=== PATIENT | female | born 2000 | race Caucasian/White ===

== ENCOUNTER 2023-10-07 16:59 | Inpatient (IN) | payer OTHER ==
[2023-10-07 18:37] VITALS: BMI 20.2
[2023-10-07] MEDS ORDERED: BENZONATATE 200 MG CAPSULE PO PRN (19:56)
[2023-10-07] MEDS ORDERED: LOPERAMIDE HCL 2 MG CAPSULE PO PRN (19:56)
[2023-10-07] MEDS ORDERED: guaiFENesin 600 MG TABLET.ER (FP) PO PRN (19:56)
[2023-10-07] MEDS ORDERED: POLYETHYLENE GLYCOL (HEALTHYLAX) 3350 17 GM PACKET PO PRN (19:56)
[2023-10-07] MEDS ORDERED: MAG HYDROX/AL HYDROX/SIMETH 30 ML UNIT-DOSE CUP PO PRN (19:56)
[2023-10-07] MEDS ORDERED: IBUPROFEN 400 MG TABLET (FP) PO PRN (19:56)
[2023-10-07] MEDS ORDERED: NALOXONE HCL (KLOXXADO) 8 MG SPRAY NS PRN (19:56)
[2023-10-07] MEDS ORDERED: MAGNESIUM HYDROX 2400MG/30ML ORAL SUSPENSION 30 ML CUP PO PRN (19:56)
[2023-10-07] MEDS ORDERED: BENZOCAINE/MENTHOL (CHLORASEPTIC ) LOZENGE MM PRN (19:56)
[2023-10-07] MEDS ORDERED: NALOXONE HCL 0.4 MG/ML VIAL IM PRN (19:56)
[2023-10-07] MEDS ORDERED: DICYCLOMINE HCL 10 MG CAPSULE PO PRN (19:56)
[2023-10-07] MEDS ORDERED: ACETAMINOPHEN 325 MG TABLET (FP) PO PRN (19:56)
[2023-10-07] MEDS ORDERED: BISMUTH SUBSALICYLATE 524 MG/30 ML PO PRN (19:56)
[2023-10-07] MEDS: THIAMINE 100 MG TABLET PO SCH (23:27)
[2023-10-08] MEDS: IBUPROFEN 600 MG TABLET (FP) PO PRN (01:47)
[2023-10-08] MEDS: hydrOXYzine PAMOATE 25 MG CAPSULE (FP) PO ONE (02:11)
[2023-10-08] MEDS: METHOCARBAMOL 500 MG TABLET PO PRN (03:07)
[2023-10-08] MEDS: PRENATAL VITAMINS W/ FOLIC ACID TABLET (FP) PO SCH (09:23)
[2023-10-08] MEDS: NICOTINE 14 MG/24 HOURS TOPICAL PATCH TD SCH (09:23)
[2023-10-08] MEDS: methaDONE HCL 10 MG TABLET (FOR DETOX USE ONLY) PO ONE ×2 (09:26→09:33)
[2023-10-08] MEDS: BUPRENORPHINE/NALOXONE 0.5 MG/0.125 MG FILM SL ONE ×2 (09:28→22:40)
[2023-10-08] MEDS: diazePAM 5 MG TABLET PO SCH (10:56)
[2023-10-08] MEDS ORDERED: MELATONIN 5 MG TABLETS PO PRN (12:01)
[2023-10-08 12:07] LABS: HEMATOCRIT 35.1 % (32.4-45.2); HEMOGLOBIN 11.3 GM/dL (10.7-15.3); MCH 26.6 pg (25.7-33.7); MCHC 32.3 g/dl (32.0-36.0); MEAN CELL VOLUME 82.3 fl (80-96); MEAN PLT VOLUME 10.3 fl (7.5-11.1); PLATELET COUNT 170 10^3/uL (134-434); RBC 4.26 M/mm3 (3.60-5.2); RDW 13.3 % (11.6-15.6); WHITE BLOOD COUNT 6.7 K/mm3 (4.0-10.0)
[2023-10-08 12:13] LABS: CHLORIDE 107 mmol/L (98-107); POTASSIUM 4.2 mmol/L (3.5-5.1); SODIUM 139 mmol/L (136-145)
[2023-10-08 12:20] LABS: SGOT/AST 16 U/L (15-37); SGPT/ALT 20 U/L (13-61)
[2023-10-08 12:21] LABS: ANION GAP 2 mmol/L (4-13); CALCIUM 8.5 mg/dL (8.5-10.1); CO2 30 mmol/L (21-32); GLUCOSE,RANDOM 94 mg/dL (74-106)
[2023-10-08 12:22] LABS: ALBUMIN 3.2 g/dl (3.4-5.0); BILIRUBIN,TOTAL 0.2 mg/dL (0.2-1); TOT PROT 6.2 g/dl (6.4-8.2)
[2023-10-08 12:24] LABS: ALK PHOS 80 U/L (45-117)
[2023-10-08 12:26] LABS: CREATININE 0.7 mg/dL (0.55-1.3)
[2023-10-08] MEDS: NICOTINE POLACRILEX 2 MG LOZENGE BC PRN (17:26)
[2023-10-08 18:24] VITALS: RESP 18
[2023-10-08] MEDS: diazePAM 5 MG TABLET PO PRN (21:03)
[2023-10-08] MEDS: MELATONIN 5 MG TABLETS PO SCH (22:40)
[2023-10-09 05:40] VITALS: BP 147/93; PULSE 89; TEMP 97.6
[2023-10-09] MEDS: ONDANSETRON *ODT* 4 MG TABLET SL PRN (06:05)
[2023-10-09] MEDS: TRIMETHOBENZAMIDE HCL 200MG/2ML INJ IM ONE (07:09)
[2023-10-09] MEDS ORDERED: BUPRENORPHINE/NALOXONE 0.5 MG/0.125 MG FILM SL SCH (10:00)
[2023-10-10] MEDS ORDERED: diazePAM 5 MG TABLET PO SCH (06:00)
[2023-10-10] MEDS ORDERED: BUPRENORPHINE/NALOXONE 2 MG/0.5 MG FILM PACKET SL SCH (10:00)
[2023-10-10] MEDS ORDERED: methaDONE HCL 10 MG TABLET (FOR DETOX USE ONLY) PO ONE (10:00)
[2023-10-11] MEDS ORDERED: diazePAM 5 MG TABLET PO SCH (06:00)
[2023-10-11] MEDS ORDERED: BUPRENORPHINE/NALOXONE 4 MG/1 MG FILM PACKET SL SCH (10:00)
[2023-10-12] MEDS ORDERED: diazePAM 5 MG TABLET PO ONE (06:00)
[2023-10-12] MEDS ORDERED: BUPRENORPHINE/NALOXONE 8 MG/2 MG FILM PACKET SL SCH (10:00)
[2023-10-12] MEDS ORDERED: methaDONE HCL 10 MG TABLET (FOR DETOX USE ONLY) PO ONE (10:00)
[2023-10-13] MEDS ORDERED: BUPRENORPHINE/NALOXONE 8 MG/2 MG FILM PACKET SL SCH (10:00)
== END 2023-10-09 08:03 | disposition left against medical advice (07) | DRG 770 ==
LOC: YASAS 16:59 → Y6N 22:00
PROVIDERS: ADMIT Allergy & Immunology; ATTEND Surgery
PROC: HZ2ZZZZ Detoxification Services for Substance Abuse Treatment (ICD-10-PCS; principal; 2023-10-07)
DX: F11.23 Opioid dependence with withdrawal (principal); F10.230 Alcohol dependence with withdrawal, uncomplicated; F13.230 Sedative, hypnotic or anxiolytic dependence with withdrawal, uncomplicated; F14.20 Cocaine dependence, uncomplicated; F12.20 Cannabis dependence, uncomplicated; F17.210 Nicotine dependence, cigarettes, uncomplicated; F19.282 Other psychoactive substance dependence with psychoactive substance-induced sleep disorder; F19.280 Other psychoactive substance dependence with psychoactive substance-induced anxiety disorder; F31.9 Bipolar disorder, unspecified; F60.3 Borderline personality disorder; R40.0 Somnolence; Z62.810 Personal history of physical and sexual abuse in childhood; Z91.410 Personal history of adult physical and sexual abuse; Z63.0 Problems in relationship with spouse or partner; Z63.8 Other specified problems related to primary support group
CPT/HCPCS: 36415; 80053; 80305; 80307; 81025; 85027; 86780; 93005; 93010; Q0162

== ENCOUNTER 2023-11-07 16:16 | Inpatient (IN) | payer OTHER ==
[2023-11-07 16:53] VITALS: BMI 20.7
[2023-11-08] MEDS ORDERED: IBUPROFEN 400 MG TABLET (FP) PO PRN (00:28)
[2023-11-08] MEDS ORDERED: NALOXONE (NARCAN) HCL 4 MG/0.1 ML SPRAY NS PRN (00:28)
[2023-11-08] MEDS ORDERED: MAGNESIUM HYDROX 2400MG/30ML ORAL SUSPENSION 30 ML CUP PO PRN (00:28)
[2023-11-08] MEDS ORDERED: MAG HYDROX/AL HYDROX/SIMETH 30 ML UNIT-DOSE CUP PO PRN (00:28)
[2023-11-08] MEDS ORDERED: NICOTINE POLACRILEX 2 MG GUM BUC PRN (00:28)
[2023-11-08] MEDS ORDERED: POLYETHYLENE GLYCOL (HEALTHYLAX) 3350 17 GM PACKET PO PRN (00:28)
[2023-11-08] MEDS ORDERED: guaiFENesin 600 MG TABLET.ER (FP) PO PRN (00:28)
[2023-11-08] MEDS ORDERED: BENZONATATE 200 MG CAPSULE PO PRN (00:28)
[2023-11-08] MEDS ORDERED: LOPERAMIDE HCL 2 MG CAPSULE PO PRN (00:28)
[2023-11-08] MEDS ORDERED: IBUPROFEN 600 MG TABLET (FP) PO PRN (00:28)
[2023-11-08] MEDS ORDERED: BENZOCAINE/MENTHOL (CHLORASEPTIC ) LOZENGE MM PRN (00:28)
[2023-11-08] MEDS ORDERED: BISMUTH SUBSALICYLATE 524 MG/30 ML PO PRN (00:28)
[2023-11-08] MEDS ORDERED: NALOXONE HCL 0.4 MG/ML VIAL IM PRN (00:28)
[2023-11-08] MEDS ORDERED: DICYCLOMINE HCL 10 MG CAPSULE PO PRN (00:28)
[2023-11-08] MEDS ORDERED: ACETAMINOPHEN 325 MG TABLET (FP) PO PRN (00:28)
[2023-11-08] MEDS ORDERED: ALBUTEROL SO4 HFA INHALER IH PRN (00:54)
[2023-11-08] MEDS ORDERED: methaDONE HCL 10 MG TABLET (FOR DETOX USE ONLY) ONE (01:18)
[2023-11-08] MEDS: methaDONE HCL 10 MG TABLET (FOR DETOX USE ONLY) PO ONE (01:23)
[2023-11-08] MEDS ORDERED: diazePAM 5 MG TABLET ONE ×2 (01:39→01:41)
[2023-11-08] MEDS: diazePAM 5 MG TABLET PO PRN (01:41)
[2023-11-08] MEDS: diazePAM 5 MG TABLET PO SCH (05:56)
[2023-11-08] MEDS: PRENATAL VITAMINS W/ FOLIC ACID TABLET (FP) PO SCH (10:48)
[2023-11-08] MEDS: NICOTINE 21 MG/24 HOURS TOPICAL PATCH TD SCH (10:48)
[2023-11-08] MEDS: hydrOXYzine PAMOATE 25 MG CAPSULE (FP) PO PRN (13:37)
[2023-11-08] MEDS: METHOCARBAMOL 500 MG TABLET PO PRN (13:37)
[2023-11-08] MEDS: cloNIDine HCL 0.1 MG TABLET PO PRN (17:13)
[2023-11-08] MEDS ORDERED: MELATONIN 5 MG TABLETS PO SCH (22:00)
[2023-11-08] MEDS: SUVOREXANT 10 MG TABLET PO PRN (22:12)
[2023-11-08] MEDS: THIAMINE 100 MG TABLET PO SCH (22:13)
[2023-11-09] MEDS: diazePAM 5 MG TABLET PO SCH (05:15)
[2023-11-09] MEDS: ONDANSETRON *ODT* 4 MG TABLET SL PRN (06:10)
[2023-11-09] MEDS ORDERED: methaDONE HCL 10 MG TABLET PO ONE (10:12)
[2023-11-09] MEDS: cloNIDine HCL 0.1 MG TABLET PO SCH (13:11)
[2023-11-09 13:29] LABS: HEMATOCRIT 34.2 % (32.4-45.2); HEMOGLOBIN 11.5 GM/dL (10.7-15.3); MCHC 33.6 g/dl (32.0-36.0); MEAN CELL VOLUME 80.5 fl (80-96); PLATELET COUNT 221 10^3/uL (134-434); RBC 4.25 M/mm3 (3.60-5.2); RDW 13.4 % (11.6-15.6); WHITE BLOOD COUNT 5.6 K/mm3 (4.0-10.0)
[2023-11-09 13:45] LABS: POTASSIUM 3.9 mmol/L (3.5-5.1)
[2023-11-09 13:52] LABS: CALCIUM 8.9 mg/dL (8.5-10.1)
[2023-11-09 13:53] LABS: ALBUMIN 3.3 g/dl (3.4-5.0); BLOOD UREA NITROGEN 11.3 mg/dL (7-18)
[2023-11-09 13:56] LABS: BILIRUBIN,TOTAL 0.2 mg/dL (0.2-1); TOT PROT 6.1 g/dl (6.4-8.2)
[2023-11-09 14:08] LABS: CREATININE 0.8 mg/dL (0.55-1.3)
[2023-11-09 22:00] VITALS: BP 137/101; PULSE 75; RESP 16; TEMP 98.7
[2023-11-10] MEDS ORDERED: diazePAM 5 MG TABLET PO SCH (06:00)
[2023-11-10] MEDS ORDERED: methaDONE 40 MG, methaDONE 20 MG PO ONE (10:00)
[2023-11-10] MEDS ORDERED: methaDONE HCL 10 MG TABLET (FOR DETOX USE ONLY) PO ONE (10:00)
[2023-11-11] MEDS ORDERED: cloNIDine HCL 0.1 MG TABLET PO PRN
[2023-11-11] MEDS ORDERED: diazePAM 5 MG TABLET PO ONE (06:00)
[2023-11-11] MEDS ORDERED: methaDONE 40 MG, methaDONE 30 MG PO ONE (10:00)
[2023-11-12] MEDS ORDERED: methaDONE HCL 10 MG TABLET (FOR DETOX USE ONLY) PO ONE (10:00)
[2023-11-12] MEDS ORDERED: methaDONE HCL 40 MG DISPERSABLE TABLET PO ONE (10:00)
[2023-11-13] MEDS ORDERED: methaDONE 80 MG, methaDONE 10 MG PO ONE (10:00)
== END 2023-11-09 22:05 | disposition left against medical advice (07) | DRG 770 ==
LOC: YASAS 16:16 → Y6N 11-08 01:34
PROVIDERS: ADMIT Allergy & Immunology; ATTEND Allergy & Immunology
PROC: HZ2ZZZZ Detoxification Services for Substance Abuse Treatment (ICD-10-PCS; principal; 2023-11-08)
DX: F11.23 Opioid dependence with withdrawal (principal); F13.230 Sedative, hypnotic or anxiolytic dependence with withdrawal, uncomplicated; F14.20 Cocaine dependence, uncomplicated; F17.210 Nicotine dependence, cigarettes, uncomplicated; F31.9 Bipolar disorder, unspecified; F19.282 Other psychoactive substance dependence with psychoactive substance-induced sleep disorder; F19.24 Other psychoactive substance dependence with psychoactive substance-induced mood disorder; F60.3 Borderline personality disorder; F90.9 Attention-deficit hyperactivity disorder, unspecified type; Z62.810 Personal history of physical and sexual abuse in childhood
CPT/HCPCS: 36415; 80053; 80305; 80307; 81025; 85027; 86780; 93005; 93010; Q0162